=== PATIENT | male | born 1985 | race African-American/Black ===

== ENCOUNTER → 2017-07-04 08:58 | Emergency (ER) | payer MEDICAID, OTHER ==
[2017-07-04 09:12] VITALS: BP 115/76
== END | disposition home or self-care (01) ==
LOC: ED 08:58
DX: M54.9 Dorsalgia, unspecified (principal); Z53.21 Procedure and treatment not carried out due to patient leaving prior to being seen by health care provider
CPT/HCPCS: 99281

== ENCOUNTER 2017-07-04 10:13 | Emergency (ER) | payer MEDICAID ==
--- NOTE | 2017-07-04 10:38 | UC ---
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 no radiation in to legs no weakness---hurts worse in the morning, has taken no medications - History of Current Complaint Chief Complaint: UCBackPain Stated Complaint: BACK PAIN Time Seen by Provider: 07/04/17 10:20 Hx Obtained From: Patient Onset/Duration: Sudden Onset, Lasting Days - 7 Timing: Constant Severity Initially: Moderate Severity Currently: Moderate Pain Intensity: 8 Pain Scale Used: 0-10 Numeric Back Pain: Is Discrete @ Character: Throbbing, Spasmodic, Stiffness Aggravating Factor(s): Movement, Lifting Alleviating Factor(s): Rest - Allergies/Home Medications Allergies/Adverse Reactions: Allergies Allergy/AdvReac Type Severity Reaction Status Date / Time cats Allergy Eyes Uncoded 07/04/17 10:37 Itchy/Swollen/Red/Watery mushrooms Allergy Rash Uncoded 07/04/17 10:37 PMH/Surg Hx/FS Hx/Imm Hx Previously Healthy: No - back pain in the past - Surgical History Surgical History: Yes Surgery Procedure, Year, and Place: Lt WRIST - CALIUM DEPOSIT REMOVED -2016 - Family History Known Family History: Positive: None - Social History Occupation: Employed Full-time Lives: With Family Alcohol Use: Occasionally Substance Use Type: Marijuana Substance Use Comment - Amount & Last Used: 02/02/15 Smoking Status (MU): Light Every Day Tobacco Smoker Type: Cigarettes Amount Used/How Often: 1 ppd Have You Smoked in the Last Year: Yes Review of Systems Constitutional: Negative Skin: Negative Eyes: Negative ENT: Negative Respiratory: Negative Cardiovascular: Negative Gastrointestinal: Negative Genitourinary: Negative Motor: Negative Neurovascular: Negative Musculoskeletal: Negative Neurological: Negative Psychological: Negative Is Patient Immunocompromised?: No All Other Systems Reviewed And Are Negative: Yes Physical Exam Triage Information Reviewed: Yes Appearance: Well-Appearing, Pain Distress, Thin Vital Signs Reviewed: No Eye Exam: Normal Eyes: Positive: Conjunctiva Clear ENT Exam: Normal ENT: Positive: Normal ENT inspection, Hearing grossly normal. Negative: Nasal congestion, Nasal drainage, Trismus, Muffled/hoarse voice Dental Exam: Normal Neck exam: Normal Neck: Positive: Supple, Nontender Respiratory Exam: Normal Respiratory: Positive: Chest non-tender, No respiratory distress, No accessory muscle use Cardiovascular Exam: Normal Cardiovascular: Positive: RRR, Pulses Normal, Brisk Capillary Refill Musculoskeletal Exam: Normal Musculoskeletal: Positive: Strength Intact, ROM Intact, No Edema Neurological Exam: Normal Neurological: Positive: Alert, Muscle Tone Normal Psychological Exam: Normal Back Pain Course/Dx - Course Course Of Treatment: flexeril, nsaid, back exercise follow with pcp - Differential Dx/Diagnosis Differential Diagnosis/HQI/PQRI: Herniated Disc, Strain, Sprain Provider Diagnoses: Muscle strain lumbar back Discharge - Discharge Plan Condition: Stable Disposition: HOME Prescriptions: Cyclobenzaprine TAB* [Flexeril 10 MG TAB*] 10 mg PO TID PRN #15 tab PRN Reason: muscle spasm/back pain Naproxen [Naproxen 500 mg] 500 mg PO Q12H PRN #30 tab PRN Reason: Pain Patient Education Materials: Low Back Strain (ED), Acute Low Back Pain (ED), Core Strengthening Exercises (GEN), Lower Back Exercises (ED) Forms: *Work Release Referrals: Seamus Lyons MD [Primary Care Provider] - 4 Days
[2017-07-04 10:50] VITALS: BP 94/55
[2017-07-04] MEDS ORDERED: Ketorolac INJ* 60 MG/2 ML VIAL IM ONE (10:57)
[2017-07-04] MEDS ORDERED: Cyclobenzaprine TAB* 10 MG PO ONE (10:58)
== END 2017-07-04 11:55 | disposition home or self-care (01) ==
LOC: UCEAST 10:13
DX: S39.012A Strain of muscle, fascia and tendon of lower back, initial encounter (principal); F17.210 Nicotine dependence, cigarettes, uncomplicated; F12.90 Cannabis use, unspecified, uncomplicated; X50.9XXA Other and unspecified overexertion or strenuous movements or postures, initial encounter; Y92.9 Unspecified place or not applicable
CPT/HCPCS: 96372; 99212; A9270-GY; G0463; J1885

== ENCOUNTER → 2018-06-28 10:29 | Emergency (ER) | payer MEDICAID, OTHER ==
[2018-06-28 10:42] VITALS: BP 112/60
== END | disposition left against medical advice (07) ==
LOC: ED 10:29
DX: S49.92XA Unspecified injury of left shoulder and upper arm, initial encounter (principal); Z53.21 Procedure and treatment not carried out due to patient leaving prior to being seen by health care provider

== ENCOUNTER 2019-04-17 13:43 | Emergency (ER) | payer OTHER | END 2019-04-17 14:20 | disposition left against medical advice (07) | LOC: UCEAST 13:43 | DX: Z53.8 Procedure and treatment not carried out for other reasons (principal) ==

== ENCOUNTER 2019-11-05 01:18 | Emergency (ER) | payer SELFPAY ==
[2019-11-05 01:56] VITALS: BP 0/0
== END 2019-11-05 01:30 | disposition left against medical advice (07) ==
LOC: ED 01:18
DX: Z53.21 Procedure and treatment not carried out due to patient leaving prior to being seen by health care provider (principal); M54.2 Cervicalgia
CPT/HCPCS: 99281

== ENCOUNTER 2020-04-26 01:16 | Inpatient (IN) ==
[2020-04-26 01:47] LABS: ABS Basophils 0.1 10^3/ul (0-0.2); ABS Eosinophils 0.1 10^3/ul (0-0.6); ABS Lymphocytes 2.8 10^3/ul (1.0-4.8); ABS Monocytes 0.4 10^3/ul (0-0.8); Hematocrit 43 % (42-52); Hemoglobin 15.2 g/dL (14.0-18.0); Lymphocyte % 39.1 %; Mean Corpuscular HGB Conc 35 g/dL (31-36); Mean Corpuscular Hemoglobin 34 pg (27-31); Mean Corpuscular Volume 96 fL (80-94); Mean Platelet Volume 7.3 fL (7.4-10.4); Nucleated Red Blood Cells % 0.2; Platelet Count 235 10^3/uL (150-450); Red Blood Count 4.51 10^6 /uL (4.18-5.48); Red Cell Distribution Width 13 % (10-15); White Blood Count 7.3 10^3/uL (3.5-10.8)
[2020-04-26 02:03] LABS: ALT 16 U/L (7-52); AST 23 U/L (13-39); Albumin 4.2 g/dL (3.2-5.2); Albumin/Globulin Ratio 1.4 (1-3); Alkaline Phosphatase 54 U/L (34-104); Anion Gap 4 mmol/L (2-11); BUN/Creatinine Ratio 8.3 (8-20); Blood Urea Nitrogen 10 mg/dL (6-24); CO2 Carbon Dioxide 30 mmol/L (22-32); Calcium 9.3 mg/dL (8.6-10.3); Chloride 103 mmol/L (101-111); EGFR African American 82.9 (>60); EGFR Non-African American 68.5 (>60); Globulin 2.9 g/dL (2-4); Glucose 103 mg/dL (70-100); Potassium 3.8 mmol/L (3.5-5.0); Sodium 137 mmol/L (135-145); Total Protein 7.1 g/dL (6.4-8.9)
[2020-04-26 02:14] LABS: Acetaminophen < 15 mcg/mL; Alcohol, S < 10 mg/dL (<10); Salicylate < 2.50 mg/dL (<30)
[2020-04-26 02:29] LABS: TSH (Thyroid Stimulating Horm) 2.23 mcIU/mL (0.34-5.60)
[2020-04-26] MEDS ORDERED: Lorazepam PYXIS KEY ONE (08:27)
[2020-04-26] MEDS ORDERED: Al Hydrox/Mg Hydrox/Simet LIQ 30 ML UDC PO PRN (11:04)
[2020-04-26] MEDS ORDERED: Nicotine GUM 4MG FRUIT FLAVOR PO PRN (14:02)
[2020-04-26] MEDS ORDERED: Haloperidol 5 mg/ml SDV IV/IM 5 MG/ML AMP ONE ×2 (15:08→15:19)
[2020-04-26] MEDS ORDERED: Haloperidol 5 mg/ml SDV IV/IM 5 MG/ML AMP IM ONE (15:15)
[2020-04-26] MEDS ORDERED: Albuterol HFA INHALER 8 gm MDI INH PRN (15:22)
[2020-04-27] MEDS: Vitamin THERAPEUTIC TAB PO SCH (13:40)
[2020-04-27] MEDS: Nicotine PATCH 21 MG/24 HR PATCH TRANSDERM SCH (13:40)
[2020-04-28 08:24] LABS: HDL Cholesterol 40.2 mg/dL
[2020-04-28] MEDS: Vitamin THERAPEUTIC TAB PO SCH (10:57)
[2020-04-28] MEDS: Nicotine PATCH 21 MG/24 HR PATCH TRANSDERM SCH ×2 (10:57→11:53)
[2020-04-28 11:55] LABS: Urine Appearance Clear; Urine Bilirubin Negative (Negative); Urine Blood Negative (Negative); Urine Color Yellow; Urine Glucose Negative (Negative); Urine Ketones Negative (Negative); Urine Nitrite Negative (Negative); Urine Protein Negative (Negative); Urine Specific Gravity 1.013 (1.010-1.030); Urine Urobilinogen Negative (Negative)
[2020-04-28 12:19] LABS: Urine Benzodiazepine Screen None Detected (None Detect); Urine Opiates Screen None Detected (None Detect)
[2020-04-28 12:20] LABS: Urine Benzodiazepine Screen None Detected (None Detect); Urine Buprenorphine Screen Presumptive Positive (None Detect); Urine Fentanyl Screen None Detected (None Detect); Urine Hydrocodone Screen None Detected (None Detect); Urine Opiates Screen None Detected (None Detect)
[2020-04-28 18:52] VITALS: BP 122/71
== END 2020-04-29 09:00 | disposition home or self-care (01) | DRG 754 ==
LOC: ED 01:16 → BSU 13:00
PROVIDERS: ADMIT Psychiatry & Neurology Psychiatry; ATTEND Psychiatry & Neurology Psychiatry